=== PATIENT | male | born 1995 | race African-American/Black ===

== ENCOUNTER 2018-09-15 12:41 | Emergency (ER) | payer OTHER ==
[2018-09-15] MEDS: ONDANSETRON 4MG/2ML VIAL (J2405) IV (14:15)
[2018-09-15] MEDS ORDERED: MORPHINE 4 MG/ML 1ML VIAL/SYRINGE (J2270) IV (14:15)
[2018-09-15] MEDS: NS 1,000 ML IV (14:48)
[2018-09-15 14:53] LABS: BASO % 0.4 % (0.0-1.0); EOS # 0.1 10^3/uL (0.0-0.50); EOS % 1.1 % (0.0-3.0); HEMATOCRIT 42.5 % (42.0-52.0); IMMATURE GRANULOCYTE % 0.2 % (0-3.0); LYMPH # 2.5 10^3/uL (1.5-6.5); LYMPH % 45.4 % (24.0-44.0); MEAN CORPUSCULAR HEMOGLOBIN 26.9 pg (27.0-33.0); MEAN CORPUSCULAR HGB CONC 32.9 g/dl (32.0-36.5); MEAN CORPUSCULAR VOLUME 81.6 fl (80.0-96.0); MONO # 0.5 10^3/uL (0.0-0.8); MONO % 9.7 % (0.0-5.0); NEUTROPHILS # 2.4 10^3/uL (1.8-7.7); NEUTROPHILS % 43.2 % (36.0-66.0); PLATELET COUNT, AUTOMATED 260 10^3/uL (150-450); RED BLOOD COUNT 5.21 10^6/uL (4.30-6.10); WHITE BLOOD COUNT 5.5 10^3/uL (4.0-10.0)
[2018-09-15 15:16] LABS: LACTIC ACID SEPSIS PROTOCOL 0.7 MMOL/L (0.4-2.0)
[2018-09-15 15:20] LABS: ALBUMIN 3.9 GM/DL (3.2-5.2); ALBUMIN/GLOBULIN RATIO 1.11 (1.00-1.93); ALKALINE PHOSPHATASE 111 U/L (45-117); ALT/SGPT 49 U/L (12-78); AMYLASE 88 U/L (25-115); ANION GAP 9 MEQ/L (8-16); AST/SGOT 32 U/L (7-37); BILIRUBIN,DIRECT < 0.1 MG/DL (0.0-0.2); BILIRUBIN,TOTAL 0.3 MG/DL (0.2-1.0); BLOOD UREA NITROGEN 18 MG/DL (7-18); CALCIUM LEVEL 8.7 MG/DL (8.5-10.1); CARBON DIOXIDE LEVEL 25 MEQ/L (21-32); CHLORIDE LEVEL 109 MEQ/L (98-107); CREATININE FOR GFR 1.23 MG/DL (0.70-1.30); GLOMERULAR FILTRATION RATE > 60.0 (>60); GLUCOSE, FASTING 89 MG/DL (70-100); LIPASE 247 U/L (73-393); POTASSIUM SERUM 4.2 MEQ/L (3.5-5.1); SODIUM LEVEL 143 MEQ/L (136-145); TOTAL PROTEIN 7.4 GM/DL (6.4-8.2)
[2018-09-15] MEDS ORDERED: ISOVUE-370 76% 100ML VIAL (Q9967) As Ordered (15:31)
[2018-09-15] MEDS: metroNIDAZOLE (FLAGYL) 500 MG TAB PO (16:24)
[2018-09-15] MEDS: CIPROFLOXACIN 500 MG TAB PO (16:24)
== END 2018-09-15 16:36 | disposition home or self-care (01) ==
LOC: M ED 12:41
DX: K52.9 Noninfective gastroenteritis and colitis, unspecified (principal)
CPT/HCPCS: Q9967

== ENCOUNTER 2018-12-04 20:07 | Emergency (ER) | payer OTHER ==
[~2018-12-04] VITALS: Ht 160 cm; Wt 95.5 kg
[~2018-12-04 20:07] MED LIST: CIPR-249 PO; FLAG500T PO
[2018-12-04] MEDS ORDERED: KETOROLAC 30 MG/ML VIAL (J1885) IV ONE (22:30)
[2018-12-04] MEDS ORDERED: GI COCKTAIL 50ML BTL(HYOSCYAMINE/MAALOX/LIDOCAINE VISCOUS)(1:3:1) PO ONE (22:30)
[2018-12-04] MEDS ORDERED: NS 1,000 ML IV ONE (22:30)
[2018-12-04] MEDS ORDERED: ONDANSETRON 4MG/2ML VIAL (J2405) IV ONE (22:30)
[2018-12-04 22:52] LABS: BASO % 0.4 % (0.0-1.0); EOS % 0.6 % (0.0-3.0); HEMATOCRIT 42.4 % (42.0-52.0); HEMOGLOBIN 14.1 g/dl (13.5-17.5); LYMPH # 2.8 10^3/uL (1.5-6.5); LYMPH % 41.5 % (24.0-44.0); MEAN CORPUSCULAR HEMOGLOBIN 26.7 pg (27.0-33.0); MEAN CORPUSCULAR HGB CONC 33.3 g/dl (32.0-36.5); MEAN CORPUSCULAR VOLUME 80.3 fl (80.0-96.0); MONO # 0.6 10^3/uL (0.0-0.8); MONO % 9.3 % (0.0-5.0); NEUTROPHILS # 3.2 10^3/uL (1.8-7.7); NEUTROPHILS % 48.1 % (36.0-66.0); PLATELET COUNT, AUTOMATED 269 10^3/uL (150-450); RED BLOOD COUNT 5.28 10^6/uL (4.30-6.10); WHITE BLOOD COUNT 6.7 10^3/uL (4.0-10.0)
[2018-12-04] MEDS ORDERED: ISOVUE-370 76% 100ML VIAL (Q9967) As Ordered ONE (23:42)
[2018-12-05 00:03] LABS: ALT/SGPT 78 U/L (12-78); BILIRUBIN,DIRECT 0.1 MG/DL (0.0-0.2); BILIRUBIN,TOTAL 0.4 MG/DL (0.2-1.0); BLOOD UREA NITROGEN 10 MG/DL (7-18); CALCIUM LEVEL 9.2 MG/DL (8.5-10.1); CARBON DIOXIDE LEVEL 27 MEQ/L (21-32); CHLORIDE LEVEL 106 MEQ/L (98-107); CREATININE FOR GFR 1.03 MG/DL (0.70-1.30); GLOMERULAR FILTRATION RATE > 60.0 (>60); GLUCOSE, FASTING 76 MG/DL (70-100); SODIUM LEVEL 139 MEQ/L (136-145); TOTAL PROTEIN 7.7 GM/DL (6.4-8.2)
[2018-12-05 00:04] LABS: ALBUMIN 4.4 GM/DL (3.2-5.2); LIPASE 290 U/L (73-393)
--- NOTE | 2018-12-05 00:28 | REPVR ---
EXAM: CT Abdomen and Pelvis With Contrast EXAM DATE/TIME: 12/04/2018 10:28 PM CLINICAL HISTORY: 22 years old, male; Pain; Abdominal pain; Localized; Left lower quadrant (llq); Additional info: Llq pain, n/v/d, HX colitis TECHNIQUE: Axial computed tomography images of the abdomen and pelvis with intravenous contrast. All CT scans at this facility use at least one of these dose optimization techniques: automated exposure control; mA and/or kV adjustment per patient size (includes targeted exams where dose is matched to clinical indication); or iterative reconstruction. Coronal and sagittal reformatted images were created and reviewed. CONTRAST: 100 ml of iso administered intravenously. COMPARISON: CT ABD/PEL W/IV CONTRAST ONLY 09/15/2018 3:25 PM FINDINGS: Lower thorax: No suspicious mass or airspace process in the visualized lung bases. ABDOMEN: Liver: Liver appears normal with no focal abnormality. Gallbladder and bile ducts: Gallbladder is present and shows no evidence of gallstone. Pancreas: Pancreas appears normal. No focal mass or peripancreatic inflammation. Spleen: Spleen appears homogeneous without focal mass. Adrenals: Adrenal glands are normal in appearance. Kidneys and ureters: Kidneys appear normal, with no stone, solid mass or hydronephrosis. Stomach and bowel: No evidence of small bowel obstruction. No evidence of acute diverticulitis. Appendix: Normal caliber appendix is identified, with no adjacent inflammation. PELVIS: Bladder: Bladder appears normal. Reproductive: Unremarkable as visualized. ABDOMEN and PELVIS: Intraperitoneal space: No pneumoperitoneum. Bones/joints: Bony structures show no acute fracture or destructive process. Soft tissues: Unremarkable. Vasculature: Main portal and splenic veins enhance normally. Lymph nodes: No enlarged lymph nodes. IMPRESSION: No acute or concerning focal abdominal or pelvic process. Electronically signed by: Antoine Zhong On 12/05/2018 00:28:24 AM
[2018-12-05] MEDS ORDERED: ZOFR4TAB16 PO (01:02)
[2018-12-05 01:11] VITALS: BP 145/82
== END 2018-12-05 01:13 | disposition home or self-care (01) ==
LOC: M ED 20:07
DX: R10.84 Generalized abdominal pain (principal); R79.9 Abnormal finding of blood chemistry, unspecified
CPT/HCPCS: 74177; 80048; 80076; 81001; 83690; 85025; 96374; 96375; 99284; J1885; J2405; Q9967

== ENCOUNTER 2019-01-09 14:38 | Emergency (ER) | payer OTHER ==
[~2019-01-09] VITALS: Ht 165.1 cm; Wt 95.5 kg
[~2019-01-09 14:38] MED LIST changes: +ZOFR4TAB16 PO
--- NOTE | 2019-01-09 16:03 | REP ---
LEFT SHOULDER: There is no evidence of an acute fracture, dislocation or intrinsic bone disease. IMPRESSION: No fracture or dislocation. Electronically Signed by Marcus Stallworth MD 01/10/2019 03:55 P
[2019-01-09 16:06] VITALS: BP 155/77
== END 2019-01-09 16:07 | disposition home or self-care (01) ==
LOC: M ED 14:38
DX: S43.402A Unspecified sprain of left shoulder joint, initial encounter (principal); X50.9XXA Other and unspecified overexertion or strenuous movements or postures, initial encounter; Y92.89 Other specified places as the place of occurrence of the external cause; Y99.0 Civilian activity done for income or pay; F17.210 Nicotine dependence, cigarettes, uncomplicated

== ENCOUNTER 2019-05-20 23:48 | Emergency (ER) | payer OTHER ==
[~2019-05-20] VITALS: Ht 165.1 cm; Wt 95.5 kg
[2019-05-21] MEDS ORDERED: NAPR-837 PO (03:25)
[2019-05-21] MEDS ORDERED: CAPS0.022 TOP (03:25)
[2019-05-21] MEDS ORDERED: NAPROXEN 250 MG TAB PO ONE (03:30)
[2019-05-21 03:38] VITALS: BP 148/82
--- NOTE | 2019-05-21 05:45 | REP ---
Clinical: Left shoulder pain . Technique: Internal rotation, external rotation, and Y view left shoulder . Findings: No acute fracture or dislocation. The acromioclavicular and glenohumeral joints are intact. No periarticular calcifications or degenerative changes are appreciated. Sub acromial space is normal. Surrounding soft tissues are unremarkable. Impression: Normal left shoulder radiographs. Electronically Signed by Jose Nava MD 05/21/2019 05:36 A
== END 2019-05-21 03:39 | disposition home or self-care (01) ==
LOC: M ED 23:48
DX: M75.92 Shoulder lesion, unspecified, left shoulder (principal)

== ENCOUNTER 2020-07-19 07:55 | Emergency (ER) | payer OTHER ==
[~2020-07-19] VITALS: Ht 165.1 cm; Wt 106.7 kg
[~2020-07-19 07:55] MED LIST changes: +CAPS0.022 TOP; +NAPR-837 PO
--- NOTE | 2020-07-19 08:18 | REPVR ---
PROCEDURE INFORMATION: Exam: XR Left Hand Exam date and time: 07/19/2020 8:13 AM Age: 24 years old Clinical indication: Other: Crush; Additional info: Freezer fell on it TECHNIQUE: Imaging protocol: XR Left hand. Views: 3 or more views. COMPARISON: No relevant prior studies available. FINDINGS: Bones/joints: Normal. Soft tissues: Normal. IMPRESSION: No acute findings. Electronically signed by: Tomy Murphy On 07/19/2020 08:19:19 AM
[2020-07-19 08:37] VITALS: BP 135/70
== END 2020-07-19 08:47 | disposition home or self-care (01) ==
LOC: M ED 07:55
DX: S60.222A Contusion of left hand, initial encounter (principal); W22.8XXA Striking against or struck by other objects, initial encounter; Y92.018 Other place in single-family (private) house as the place of occurrence of the external cause

== ENCOUNTER 2021-10-27 20:58 | Emergency (ER) | payer OTHER ==
[~2021-10-27] VITALS: Ht 165.1 cm; Wt 98.0 kg
[2021-10-27 20:59] VITALS: BP 138/74
--- OUTSIDE RECORDS SUMMARY | 2021-10-27 21:04 | CCD ---
Author Author [facility] Organization [facility] Address Unknown Phone Unavailable Support Name Relationship Address Phone ALLIED UNIVERSAL Next Of Kin [address] [place] [address] [employer] Next Of Kin [address] [place] [address] TLSWATN Next Of Kin [address] [place] [address] SUNGMICHAEL SUERO Next Of Kin [address] [place] [address] [employer] Next Of Kin [address] [place] [address] Re-disclosure Warning The records that you are about to access may contain information from federally-assisted alcohol or drug abuse programs. If such information is present, then the following federally mandated warning applies: This information has been disclosed to you from records protected by federal confidentiality rules (42 CFR part 2). The federal rules prohibit you from making any further disclosure of this information unless further disclosure is expressly permitted by the written consent of the person to whom it pertains or as otherwise permitted by 42 CFR part 2. A general authorization for the release of medical or other information is NOT sufficient for this purpose. The Federal rules restrict any use of the information to criminally investigate or prosecute any alcohol or drug abuse patient.The records that you are about to access may contain highly sensitive health information, the redisclosure of which is protected by Article 27-F of the [place] State Public Health law. If you continue you may have access to information: Regarding HIV / AIDS; Provided by facilities licensed or operated by the [facility] Office of Mental Health; or Provided by the [facility] Office for People With Developmental Disabilities. If such information is present, then the following [facility] mandated warning applies: This information has been disclosed to you from confidential records which are protected by state law. State law prohibits you from making any further disclosure of this information without the specific written consent of the person to whom it pertains, or as otherwise permitted by law. Any unauthorized further disclosure in violation of state law may result in a fine or fci sentence or both. A general authorization for the release of medical or other information is NOT sufficient authorization for further disc losure. Medications No Information Insurance Providers Payer name Policy type / Coverage type Policy ID Covered alliance party ID Covered alliance party's relationship to العراق[place] Policy العراق[place] Plan Information 'S ADMINISTRATION [id number] SP [id number] TR[employer]IV[employer] SERVICES STATE [employer]URANCE FUND TRANSITIONAL LIVING SERV [id number] SP [id number] [facility] O [id number] S [id number] [employer] [id number] SP [id number] Problems, Conditions, and Diagnoses No Information Surgeries/Procedures No Information Results No Information Social History No Information
[2021-10-27 22:23] LABS: RSV AMPLIFICATION NEGATIVE (NEGATIVE)
--- OUTSIDE RECORDS SUMMARY | 2021-10-27 22:27 | CCD ---
Author Author [facility] Organization [facility] Address Unknown Phone Unavailable Support Name Relationship Address Phone ALLIED UNIVERSAL Next Of Kin [address] [place] [address] [employer] Next Of Kin [address] [place] [address] [place] Next Of [address] [place] [address] SUNGMICHAEL SUERO Next Of Kin [address] [place] [address] [place] [employer] Next Of Kin [address] [place] [address] Re-disclosure Warning The records that you are [...] is protected by Article 27-F of the [place] State Public Health law. If you continue you may have access to information: Regarding HIV / AIDS; Provided by facilities licensed or operated by the [facility] of Mental Health; or Provided by the [facility] Office for People With Developmental Disabilities. If such information is present, then the following [facility] mandated warning applies: This information has been [...] law may result in a fine or residential sentence or both. A general authorization for the release of medical or other information is NOT sufficient authorization for further disc losure. Medications No Information Insurance Providers Payer name Policy type / Coverage type Policy ID Covered republican ID Covered republican's relationship to العراقي Policy العراقي Plan Information 'S ADMINISTRATION [id number] SP [id number] TRANS[employer]IVING SERVICES [employer]D TRANSITIONAL LIVING SERV [id number] SP [id number] [facility] O [id number] S [id number] [employer] [id number] SP [id number] Problems, Conditions, and Diagnoses No Information Surgeries/Procedures No Information Results No Information Social History No Information
== END 2021-10-27 23:01 | disposition left against medical advice (07) ==
LOC: M ED 20:58
DX: Z53.29 Procedure and treatment not carried out because of patient's decision for other reasons (principal)